=== PATIENT | female | born 1960 | race African-American/Black ===

== ENCOUNTER 2018-07-20 16:24 | Inpatient (IN) | payer MEDICAID ==
[~2018-07-20] VITALS: Ht 160 cm; Wt 129.3 kg
[~2018-07-20 16:24] MED LIST: ACET-2178 PO; ALBU18HF2 IH; AMLO10TA80 PO; ARIP30TA2 PO; ASPI-1159 PO; BENZ2TAB7 PO; CALCIUM PO; CARV25TA47 PO; FURO-152 PO; GABA-531 PO; IBUP-2030 PO; LIP40 PO; LISI40TA4 PO; OMEP20CA10 PO; PRAV20TA57 PO; VIT D PO
[2018-07-20] MEDS ORDERED: ASPIRIN 81MG TABLET PO ONE (16:45)
[2018-07-20 17:01] LABS: BASOPHILS % 0.8 % (0.0-2.0); HEMATOCRIT. 37.6 % (36.0-48.0); HEMOGLOBIN. 11.7 g/dL (12.0-16.0); LYMPHOCYTES % 17.4 % (20.0-50.0); MEAN CORPUSCULAR HEMOGLOBIN 22.1 pg (28.0-32.0); MEAN PLATELET VOLUME 9.4 fl (7.4-10.4); NEUTROPHILS % 70.8 % (40.0-76.0); PLATELET 252 x1000/uL (130-400); RED BLOOD CELL COUNT 5.29 mill/uL (4.2-5.4); RED CELL DISTRIBUTION WIDTH 17.1 % (11.6-14.6)
[2018-07-20] MEDS: NITROGLYCERIN 0.4MG TABLET SL SL PRN ×2 (17:19→17:20)
[2018-07-20] MEDS ORDERED: FUROSEMIDE 40MG/4ML VIAL IVP ONE (17:30)
[2018-07-20 17:45] LABS: CHLORIDE 109 mEq/L (98-107); INR 1.2; PROTHROMBIN TIME 12.2 sec (9.6-11.0)
[2018-07-20] MEDS ORDERED: LORAZEPAM 2MG/ML CPJ IV PRN (23:30)
[2018-07-20] MEDS ORDERED: IPRATROPIUM/ALBUTEROL 0.5-3(2.5)MG/3ML NEB INH PRN (23:30)
[2018-07-20] MEDS ORDERED: CLONIDINE 0.1MG TABLET PO PRN (23:30)
[2018-07-20] MEDS ORDERED: DIPHENHYDRAMINE 50MG/ML VIAL IV PRN (23:30)
[2018-07-20] MEDS ORDERED: ONDANSETRON HCL 4MG/2ML INJ IV PRN (23:30)
[2018-07-21] VITALS (8 sets, daily range): BP systolic 102–144; BP diastolic 59–91
[2018-07-21 08:14] LABS: BASOPHILS % 0.8 % (0.0-2.0); EOSINOPHILS % 5.2 % (0.0-5.0); HEMATOCRIT. 35.2 % (36.0-48.0); HEMOGLOBIN. 11.1 g/dL (12.0-16.0); LYMPHOCYTES % 27.8 % (20.0-50.0); MEAN CORPUSCULAR HEMOGLOBIN 22.1 pg (28.0-32.0); MEAN CORPUSCULAR VOLUME 70.1 fL (81.0-99.0); MEAN PLATELET VOLUME 9.8 fl (7.4-10.4); MONOCYTES % 9.6 % (2.0-8.0); NEUTROPHILS % 56.6 % (40.0-76.0); PLATELET 242 x1000/uL (130-400); RED BLOOD CELL COUNT 5.02 mill/uL (4.2-5.4); RED CELL DISTRIBUTION WIDTH 16.6 % (11.6-14.6)
[2018-07-21] MEDS ORDERED: FUROSEMIDE 40MG/4ML VIAL IV SCH (09:00)
[2018-07-21] MEDS ORDERED: ENOXAPARIN 40MG/0.4ML SYR SUBCUT SCH (09:00)
[2018-07-21 09:11] LABS: CHLORIDE 106 mEq/L (98-107)
[2018-07-21 09:23] LABS: PHOSPHORUS 3.7 mg/dL (2.5-4.9)
[2018-07-21 09:26] LABS: CREATINE KINASE 122 IU/L (26-192)
[2018-07-21 09:29] LABS: CREATINE KINASE MB FRACTION < 1.0 ng/mL (0.5-3.6)
[2018-07-21] MEDS: OMEPRAZOLE 20MG CAPSULE EXTENDED RELEASE PO SCH (10:11)
[2018-07-21] MEDS: FOLIC ACID 1MG TABLET PO SCH (10:12)
[2018-07-21] MEDS: AMLODIPINE 10MG TABLET PO SCH (10:12)
[2018-07-21] MEDS: ASPIRIN 81MG EC TABLET PO SCH (10:12)
[2018-07-21] MEDS: LISINOPRIL 40MG TABLET PO SCH (10:13)
[2018-07-21] MEDS ORDERED: FUROSEMIDE 40MG/4ML VIAL IVP SCH (11:15)
[2018-07-21] MEDS: CARVEDILOL 25MG TABLET PO SCH ×2 (14:21→19:58)
[2018-07-21] MEDS: POTASSIUM CHLORIDE 20MEQ TABLET SR PO SCH (14:48)
[2018-07-21] MEDS: AZITHROMYCIN 500 MG in DEXT 5% WATER 250 ML IV SCH (14:48)
[2018-07-21] MEDS: METHYLPREDNISOLONE SOD SUCC 125 MG/2 ML VIAL IV SCH ×2 (14:49→21:51)
[2018-07-21] MEDS: CEFTRIAXONE 1 G PREMIX 50 ML IV SCH (14:49)
[2018-07-21 15:19] LABS: CREATINE KINASE 138 IU/L (26-192)
[2018-07-21 15:20] LABS: CREATINE KINASE MB FRACTION < 1.0 ng/mL (0.5-3.6)
[2018-07-21] MEDS: HYDROCODONE/ACETAMINOPHEN 5/325MG TABLET PO PRN (16:27)
[2018-07-21] MEDS: ATORVASTATIN CALCIUM 40MG TABLET PO SCH (16:48)
[2018-07-21] MEDS: APIXABAN 5 MG TABLET PO SCH (16:48)
[2018-07-21] MEDS: FUROSEMIDE 40MG/4ML VIAL IV SCH (16:54)
[2018-07-22 00:25] VITALS: BP 97/66
[2018-07-22 04:00] VITALS: BP 112/61
[2018-07-22] MEDS: METHYLPREDNISOLONE SOD SUCC 125 MG/2 ML VIAL IV SCH ×2 (06:17→13:30)
[2018-07-22] MEDS: FUROSEMIDE 40MG/4ML VIAL IV SCH ×2 (06:17→17:35)
[2018-07-22 08:00] VITALS: BP 115/65
[2018-07-22] MEDS: LISINOPRIL 40MG TABLET PO SCH ×2 (08:57→09:00)
[2018-07-22] MEDS: CARVEDILOL 25MG TABLET PO SCH ×2 (08:58→17:36)
[2018-07-22] MEDS: ASPIRIN 81MG EC TABLET PO SCH (08:58)
[2018-07-22] MEDS: FOLIC ACID 1MG TABLET PO SCH (08:58)
[2018-07-22] MEDS: APIXABAN 5 MG TABLET PO SCH ×2 (08:58→17:36)
[2018-07-22] MEDS: AMLODIPINE 10MG TABLET PO SCH ×2 (08:58→09:00)
[2018-07-22] MEDS: POTASSIUM CHLORIDE 20MEQ TABLET SR PO SCH (08:59)
[2018-07-22] MEDS: OMEPRAZOLE 20MG CAPSULE EXTENDED RELEASE PO SCH (08:59)
[2018-07-22 12:00] VITALS: BP 138/51
[2018-07-22] MEDS: AZITHROMYCIN 500 MG in DEXT 5% WATER 250 ML IV SCH (12:43)
[2018-07-22] MEDS: CEFTRIAXONE 1 G PREMIX 50 ML IV SCH (12:43)
[2018-07-22 16:00] VITALS: BP 112/63
[2018-07-22] MEDS: ATORVASTATIN CALCIUM 40MG TABLET PO SCH (17:36)
[2018-07-22 20:00] VITALS: BP 106/55
[2018-07-23] VITALS: BP 113/60
[2018-07-23 04:00] VITALS: BP 118/68
[2018-07-23] MEDS: METHYLPREDNISOLONE SOD SUCC 125 MG/2 ML VIAL IV SCH ×4 (06:04→20:41)
[2018-07-23] MEDS: FUROSEMIDE 40MG/4ML VIAL IV SCH ×2 (06:23→17:21)
[2018-07-23 08:00] VITALS: BP 113/63
[2018-07-23] MEDS: LISINOPRIL 40MG TABLET PO SCH (08:48)
[2018-07-23] MEDS: FOLIC ACID 1MG TABLET PO SCH (08:48)
[2018-07-23] MEDS: FAMOTIDINE 20MG TABLET PO SCH (08:48)
[2018-07-23] MEDS: ASPIRIN 81MG EC TABLET PO SCH (08:48)
[2018-07-23] MEDS: POTASSIUM CHLORIDE 20MEQ TABLET SR PO SCH (08:48)
[2018-07-23] MEDS: APIXABAN 5 MG TABLET PO SCH ×2 (08:48→17:21)
[2018-07-23] MEDS: AMLODIPINE 10MG TABLET PO SCH (08:49)
[2018-07-23] MEDS: AZITHROMYCIN 500 MG in DEXT 5% WATER 250 ML IV SCH (11:41)
[2018-07-23 12:00] VITALS: BP 120/63
[2018-07-23 16:00] VITALS: BP 125/77
[2018-07-23] MEDS: CEFTRIAXONE 1 G PREMIX 50 ML IV SCH (16:01)
[2018-07-23] MEDS: ATORVASTATIN CALCIUM 40MG TABLET PO SCH (17:21)
[2018-07-23] MEDS: CARVEDILOL 25MG TABLET PO SCH (17:26)
[2018-07-23 20:04] VITALS: BP 140/77
[2018-07-23] MEDS: HYDROCODONE/ACETAMINOPHEN 5/325MG TABLET PO PRN (21:10)
[2018-07-24 00:13] VITALS: BP 132/81
[2018-07-24 04:04] VITALS: BP 124/74
[2018-07-24] MEDS: METHYLPREDNISOLONE SOD SUCC 125 MG/2 ML VIAL IV SCH (06:23)
[2018-07-24] MEDS: FUROSEMIDE 40MG/4ML VIAL IV SCH (06:23)
[2018-07-24 06:57] LABS: HEMATOCRIT. 36.4 % (36.0-48.0); HEMOGLOBIN. 11.2 g/dL (12.0-16.0); MEAN CORPUSCULAR HEMOGLOBIN 21.7 pg (28.0-32.0); MEAN CORPUSCULAR VOLUME 70.9 fL (81.0-99.0); MEAN PLATELET VOLUME 10.5 fl (7.4-10.4); PLATELET 287 x1000/uL (130-400); RED BLOOD CELL COUNT 5.13 mill/uL (4.2-5.4); RED CELL DISTRIBUTION WIDTH 16.6 % (11.6-14.6)
[2018-07-24 07:39] LABS: PHOSPHORUS 3.6 mg/dL (2.5-4.9)
[2018-07-24] MEDS: AMLODIPINE 10MG TABLET PO SCH (08:37)
[2018-07-24] MEDS: LISINOPRIL 40MG TABLET PO SCH (08:37)
[2018-07-24] MEDS: FOLIC ACID 1MG TABLET PO SCH (08:38)
[2018-07-24] MEDS: CARVEDILOL 25MG TABLET PO SCH (08:38)
[2018-07-24] MEDS: ASPIRIN 81MG EC TABLET PO SCH (08:39)
[2018-07-24] MEDS: APIXABAN 5 MG TABLET PO SCH (08:39)
[2018-07-24] MEDS: POTASSIUM CHLORIDE 20MEQ TABLET SR PO SCH (08:39)
[2018-07-24] MEDS: FAMOTIDINE 20MG TABLET PO SCH (08:39)
[2018-07-24 11:29] VITALS: BP 126/86
[2018-07-24 13:29] LABS: PLATELET ESTIMATE NORMAL
== END 2018-07-24 12:13 | disposition home or self-care (01) | DRG 133 ==
LOC: ER 16:24 → EDBEDREQ 19:01 → 7WST 20:03 → EDBEDREQ 20:06 → EDBEDREQTM 20:06 → ENRESERV 23:08 → 6WST 07-23 08:00
PROVIDERS: ADMIT Internal Medicine Nephrology; ATTEND Internal Medicine Nephrology
DX: J96.02 Acute respiratory failure with hypercapnia (principal); I50.41 Acute combined systolic (congestive) and diastolic (congestive) heart failure; E66.01 Morbid (severe) obesity due to excess calories; I42.9 Cardiomyopathy, unspecified; I48.2 Chronic atrial fibrillation; J44.0 Chronic obstructive pulmonary disease with (acute) lower respiratory infection; J44.1 Chronic obstructive pulmonary disease with (acute) exacerbation; Z68.43 Body mass index [BMI] 50.0-59.9, adult; I11.0 Hypertensive heart disease with heart failure; E78.5 Hyperlipidemia, unspecified; J20.9 Acute bronchitis, unspecified; I69.328 Other speech and language deficits following cerebral infarction; Z95.810 Presence of automatic (implantable) cardiac defibrillator; Z87.891 Personal history of nicotine dependence; Z68.34 Body mass index [BMI] 34.0-34.9, adult; Z79.899 Other long term (current) drug therapy
CPT/HCPCS: 36415; 71045; 80048; 82550; 82553; 82962; 83735; 83880; 84100; 84484; 93005; 93306; 94640; 96372; 96374; 96375; 99291; C1893; J0456; J0696; J1650; J1940; J2930; J7050; J7060; J7620

== ENCOUNTER 2019-07-04 16:16 | Inpatient (IN) | payer MEDICAID ==
[~2019-07-04] VITALS: Ht 160 cm; Wt 124.8 kg
[~2019-07-04 16:16] MED LIST changes: -ACET-2178 PO; -ASPI-1159 PO; +ASPI-1497 PO; -OMEP20CA10 PO; +OMEP20CA14 PO; +TOPUD PO
[2019-07-04] MEDS ORDERED: IPRATROPIUM BROMIDE (0.02%) 0.5MG/2.5ML NEB HHN STA (17:42)
[2019-07-04] MEDS ORDERED: METHYLPREDNISOLONE SOD SUCC 125 MG/2 ML VIAL IV STA (17:42)
[2019-07-04] MEDS ORDERED: ALBUTEROL (0.083%) 2.5MG/3ML NEB HHN STA (17:42)
[2019-07-04] MEDS ORDERED: ASPIRIN 81MG TABLET PO ONE (17:45)
[2019-07-04 18:52] LABS: BASOPHILS % 1.5 % (0.0-2.0); EOSINOPHILS % 1.8 % (0.0-5.0); HEMATOCRIT. 36.6 % (36.0-48.0); HEMOGLOBIN. 11.5 g/dL (12.0-16.0); LYMPHOCYTES % 19.7 % (20.0-50.0); MEAN CORPUSCULAR HEMOGLOBIN 21.2 pg (28.0-32.0); MEAN CORPUSCULAR VOLUME 67.3 fL (81.0-99.0); MEAN PLATELET VOLUME 10.1 fl (7.4-10.4); MONOCYTES % 9.7 % (2.0-8.0); NEUTROPHILS % 67.3 % (40.0-76.0); PLATELET 331 x1000/uL (130-400); RED BLOOD CELL COUNT 5.44 mill/uL (4.2-5.4)
[2019-07-04] MEDS ORDERED: NITROGLYCERIN OINT 1GM/INCH UDPKT TD ONE (19:00)
[2019-07-04] MEDS ORDERED: FUROSEMIDE 40MG/4ML VIAL IV ONE (19:00)
[2019-07-04 19:23] LABS: PLATELET ESTIMATE NORMAL
[2019-07-04] MEDS ORDERED: KETOROLAC 15MG/ML VIAL IV ONE (19:45)
[2019-07-04 19:56] LABS: CHLORIDE 109 mEq/L (98-107)
[2019-07-04] MEDS ORDERED: MAGNESIUM/ALUMINUM HYDROXIDE/SIMETHICONE 30ML UDC PO PRN (20:00)
[2019-07-04] MEDS ORDERED: LORAZEPAM 2MG/ML CPJ IV PRN (20:00)
[2019-07-04] MEDS ORDERED: ONDANSETRON HCL 4MG/2ML INJ IV PRN (20:00)
[2019-07-04] MEDS ORDERED: DIPHENHYDRAMINE 50MG/ML VIAL IV PRN (20:00)
[2019-07-04] MEDS ORDERED: HYDRALAZINE 20MG/ML VIAL IV PRN (20:00)
[2019-07-04] MEDS ORDERED: DOCUSATE SODIUM 100MG CAPSULE PO PRN (20:00)
[2019-07-04] MEDS ORDERED: GUAIFENESIN 200MG/10ML SUGAR FREE UDC PO PRN (20:00)
[2019-07-04] MEDS ORDERED: CLONIDINE 0.1MG TABLET PO PRN (20:00)
[2019-07-04] MEDS ORDERED: ACETAMINOPHEN 325MG TABLET PO PRN (20:00)
[2019-07-04 22:40] VITALS: BP 115/62
[2019-07-04] MEDS ORDERED: HYDROCODONE/ACETAMINOPHEN 10/325MG TABLET PO PRN (22:57)
[2019-07-04] MEDS ORDERED: MORPHINE SULFATE 2 MG/ML CPJ (NOT FOR IM USE) IV PRN (22:58)
[2019-07-04] MEDS ORDERED: GLIP5TAB12 PO (23:57)
[2019-07-04] MEDS ORDERED: FURO-151 PO (23:57)
[2019-07-05] VITALS: BP 130/66
[2019-07-05 00:21] LABS: CREATINE KINASE MB FRACTION 1.5 ng/mL (0.5-3.6)
[2019-07-05 04:00] VITALS: BP 104/61
[2019-07-05] MEDS: SODIUM CHLORIDE 0.9% INJ 3ML FLUSH IVF SCH ×3 (06:07→23:06)
[2019-07-05 07:48] LABS: HEMATOCRIT. 34.2 % (36.0-48.0); HEMOGLOBIN. 10.6 g/dL (12.0-16.0); MEAN CORPUSCULAR VOLUME 67.7 fL (81.0-99.0); MEAN PLATELET VOLUME 10.4 fl (7.4-10.4); PLATELET 266 x1000/uL (130-400); RED BLOOD CELL COUNT 5.06 mill/uL (4.2-5.4); RED CELL DISTRIBUTION WIDTH 16.6 % (11.6-14.6)
[2019-07-05 08:00] VITALS: BP 138/84
[2019-07-05 08:07] LABS: CHLORIDE 107 mEq/L (98-107)
[2019-07-05 08:24] LABS: CREATINE KINASE 277 IU/L (26-192)
[2019-07-05 08:26] LABS: CREATINE KINASE MB FRACTION 1.5 ng/mL (0.5-3.6)
[2019-07-05] MEDS: ENOXAPARIN 30MG/0.3ML SYR SUBCUT SCH ×2 (08:54→23:06)
[2019-07-05 09:12] LABS: T4 FREE 1.26 ng/dL (0.76-1.46)
[2019-07-05] MEDS ORDERED: DEXTROSE 50% WATER 50ML SYRINGE IV PRN (11:00)
[2019-07-05] MEDS: BLOOD SUGAR DIAGNOSTIC STRIP TEST SCH ×3 (11:45→21:00)
[2019-07-05 12:00] VITALS: BP 104/68
[2019-07-05] MEDS: INSULIN LISPRO 100 UNITS/ML SUBCUT SCH ×3 (12:54→21:00)
[2019-07-05 14:14] LABS: PLATELET ESTIMATE NORMAL
[2019-07-05 16:00] VITALS: BP 113/64
[2019-07-05 17:54] LABS: CREATINE KINASE 294 IU/L (26-192)
[2019-07-05 17:56] LABS: CREATINE KINASE MB FRACTION 2.3 ng/mL (0.5-3.6)
[2019-07-05 20:00] VITALS: BP 126/77
[2019-07-06] VITALS: BP 114/59
[2019-07-06 01:00] LABS: CREATINE KINASE 272 IU/L (26-192)
[2019-07-06 01:01] LABS: CREATINE KINASE MB FRACTION 2.3 ng/mL (0.5-3.6)
[2019-07-06] MEDS: IPRATROPIUM/ALBUTEROL 0.5-3(2.5)MG/3ML NEB HHN PRN (03:09)
[2019-07-06 04:00] VITALS: BP 123/74
[2019-07-06] MEDS: SODIUM CHLORIDE 0.9% INJ 3ML FLUSH IVF SCH ×3 (06:31→21:36)
[2019-07-06] MEDS: BLOOD SUGAR DIAGNOSTIC STRIP TEST SCH ×4 (06:59→21:00)
[2019-07-06] MEDS: INSULIN LISPRO 100 UNITS/ML SUBCUT SCH ×4 (07:15→21:00)
[2019-07-06 07:32] LABS: BASOPHILS % 0.5 % (0.0-2.0); EOSINOPHILS % 0.1 % (0.0-5.0); HEMATOCRIT. 34.2 % (36.0-48.0); HEMOGLOBIN. 10.6 g/dL (12.0-16.0); MEAN CORPUSCULAR VOLUME 67.5 fL (81.0-99.0); MEAN PLATELET VOLUME 10.6 fl (7.4-10.4); MONOCYTES % 6.5 % (2.0-8.0); NEUTROPHILS % 81.9 % (40.0-76.0); PLATELET 314 x1000/uL (130-400); RED BLOOD CELL COUNT 5.08 mill/uL (4.2-5.4); RED CELL DISTRIBUTION WIDTH 16.5 % (11.6-14.6)
[2019-07-06 07:34] LABS: CHLORIDE 107 mEq/L (98-107)
[2019-07-06 07:51] LABS: CREATINE KINASE 266 IU/L (26-192)
[2019-07-06 07:56] LABS: CREATINE KINASE MB FRACTION 2.2 ng/mL (0.5-3.6)
[2019-07-06 08:00] VITALS: BP 115/89
[2019-07-06] MEDS: ENOXAPARIN 30MG/0.3ML SYR SUBCUT SCH ×2 (09:04→21:36)
[2019-07-06 12:00] VITALS: BP 120/81
[2019-07-06] MEDS: FUROSEMIDE 40MG/4ML VIAL IVP SCH ×2 (14:03→17:55)
[2019-07-06 16:00] VITALS: BP_SYST 125; BP_SYST 163; BP_DIAS 115; BP_DIAS 79
[2019-07-06 20:00] VITALS: BP 127/79
[2019-07-07] VITALS: BP 123/89
[2019-07-07] MEDS: IPRATROPIUM/ALBUTEROL 0.5-3(2.5)MG/3ML NEB HHN PRN (02:04)
[2019-07-07 04:00] VITALS: BP 159/96
[2019-07-07] MEDS: SODIUM CHLORIDE 0.9% INJ 3ML FLUSH IVF SCH ×2 (06:30→14:00)
[2019-07-07] MEDS: INSULIN LISPRO 100 UNITS/ML SUBCUT SCH ×4 (07:15→21:00)
[2019-07-07] MEDS: BLOOD SUGAR DIAGNOSTIC STRIP TEST SCH ×4 (07:22→21:00)
[2019-07-07 08:00] VITALS: BP 117/81
[2019-07-07] MEDS: FUROSEMIDE 40MG/4ML VIAL IVP SCH ×2 (09:08→17:24)
[2019-07-07] MEDS: ENOXAPARIN 30MG/0.3ML SYR SUBCUT SCH ×2 (09:08→21:50)
[2019-07-07] MEDS: LOSARTAN POTASSIUM 25 MG TABLET PO SCH (09:09)
[2019-07-07 12:00] VITALS: BP 116/82
[2019-07-07 16:00] VITALS: BP 106/70
[2019-07-07 20:00] VITALS: BP 121/79
[2019-07-08] VITALS: BP 132/87
[2019-07-08] MEDS: SODIUM CHLORIDE 0.9% INJ 3ML FLUSH IVF SCH ×3 (00:34→14:00)
[2019-07-08 04:00] VITALS: BP 121/79
[2019-07-08] MEDS: BLOOD SUGAR DIAGNOSTIC STRIP TEST SCH ×3 (06:45→16:45)
[2019-07-08 06:54] LABS: BASOPHILS % 1.2 % (0.0-2.0); EOSINOPHILS % 1.3 % (0.0-5.0); HEMATOCRIT. 37.9 % (36.0-48.0); HEMOGLOBIN. 11.7 g/dL (12.0-16.0); LYMPHOCYTES % 23.3 % (20.0-50.0); MEAN CORPUSCULAR HEMOGLOBIN 20.6 pg (28.0-32.0); MEAN CORPUSCULAR VOLUME 66.8 fL (81.0-99.0); MEAN PLATELET VOLUME 10.4 fl (7.4-10.4); MONOCYTES % 12.1 % (2.0-8.0); NEUTROPHILS % 62.1 % (40.0-76.0); PLATELET 342 x1000/uL (130-400); RED BLOOD CELL COUNT 5.67 mill/uL (4.2-5.4)
[2019-07-08] MEDS: FUROSEMIDE 40MG/4ML VIAL IVP SCH ×2 (07:04→16:46)
[2019-07-08] MEDS: INSULIN LISPRO 100 UNITS/ML SUBCUT SCH ×3 (07:15→16:46)
[2019-07-08 08:00] VITALS: BP 118/86
[2019-07-08] MEDS: LOSARTAN POTASSIUM 25 MG TABLET PO SCH (08:46)
[2019-07-08] MEDS: ENOXAPARIN 30MG/0.3ML SYR SUBCUT SCH (08:47)
[2019-07-08 12:00] VITALS: BP 109/73
[2019-07-08 15:28] VITALS: BP 109/70
== END 2019-07-08 17:50 | disposition home or self-care (01) | DRG 133 ==
LOC: ER 16:16 → 5WST 19:47 → ENRESERV 20:12
PROVIDERS: ADMIT Internal Medicine; ATTEND Internal Medicine
DX: J96.00 Acute respiratory failure, unspecified whether with hypoxia or hypercapnia (principal); I50.23 Acute on chronic systolic (congestive) heart failure; E87.8 Other disorders of electrolyte and fluid balance, not elsewhere classified; I42.9 Cardiomyopathy, unspecified; E44.1 Mild protein-calorie malnutrition; I48.91 Unspecified atrial fibrillation; I11.0 Hypertensive heart disease with heart failure; E11.9 Type 2 diabetes mellitus without complications; D64.9 Anemia, unspecified; J44.1 Chronic obstructive pulmonary disease with (acute) exacerbation; E66.9 Obesity, unspecified; E78.5 Hyperlipidemia, unspecified; Z86.73 Personal history of transient ischemic attack (TIA), and cerebral infarction without residual deficits; Z87.891 Personal history of nicotine dependence; Z95.810 Presence of automatic (implantable) cardiac defibrillator; Z79.1 Long term (current) use of non-steroidal anti-inflammatories (NSAID); Z79.82 Long term (current) use of aspirin; Z79.84 Long term (current) use of oral hypoglycemic drugs; Z79.899 Other long term (current) drug therapy; Z68.42 Body mass index [BMI] 45.0-49.9, adult; Z71.3 Dietary counseling and surveillance
CPT/HCPCS: 36415; 71045; 76700; 80048; 80053; 80061; 82550; 82553; 82962; 83036; 83880; 84439; 84443; 84484; 85025; 85379; 93005; 93306; 93970; 94640; 94644; 99285; J1650; J1815; J1885; J1940; J2270; J2930

== ENCOUNTER 2019-08-17 14:50 | Inpatient (IN) | payer MEDICAID ==
[~2019-08-17] VITALS: Ht 175.3 cm; Wt 140.6 kg
[~2019-08-17 14:50] MED LIST changes: +FURO-151 PO; +GLIP5TAB12 PO
[2019-08-17] MEDS ORDERED: ONDANSETRON HCL 4MG/2ML INJ IV STA (15:26)
[2019-08-17] MEDS ORDERED: MORPHINE SULFATE 4 MG/ML CPJ (NOT FOR IM USE) IV STA (15:26)
[2019-08-17] MEDS ORDERED: ACETAMINOPHEN 325MG TABLET PO STA (15:26)
[2019-08-17] MEDS ORDERED: MAGNESIUM 2 G PREMIX 50 ML IV ONE (15:45)
[2019-08-17] MEDS ORDERED: FUROSEMIDE 40MG/4ML VIAL IV ONE (15:45)
[2019-08-17] MEDS ORDERED: ALBUTEROL 6.7GM HFA INHALER ORI ONE (15:45)
[2019-08-17] MEDS ORDERED: NITROGLYCERIN OINT 1GM/INCH UDPKT TD ONE (15:45)
[2019-08-17] MEDS ORDERED: AZITHROMYCIN 500 MG in DEXT 5% WATER 250 ML IV ONE (17:00)
[2019-08-17] MEDS ORDERED: CEFTRIAXONE 2 G PREMIX 50 ML IV ONE (17:00)
[2019-08-17 17:16] LABS: CHLORIDE 107 mEq/L (98-107)
[2019-08-17 17:17] LABS: BASOPHILS % 0.9 % (0.0-2.0); EOSINOPHILS % 0.1 % (0.0-5.0); HEMATOCRIT. 38.3 % (36.0-48.0); LYMPHOCYTES % 19.4 % (20.0-50.0); MEAN CORPUSCULAR HEMOGLOBIN 20.4 pg (28.0-32.0); MEAN PLATELET VOLUME 10.1 fl (7.4-10.4); MONOCYTES % 11.5 % (2.0-8.0); NEUTROPHILS % 68.1 % (40.0-76.0); PLATELET 305 x1000/uL (130-400); RED BLOOD CELL COUNT 5.89 mill/uL (4.2-5.4)
[2019-08-17 17:19] LABS: CLARITY URINE CLEAR (CLEAR); COLOR URINE DARK YELLOW (YELLOW); KETONES URINE TRACE (NEGATIVE); LEUKOCYTE ESTERASE URINE TRACE (NEGATIVE); NITRITE URINE NEGATIVE (NEGATIVE); OCCULT BLOOD URINE NEGATIVE (NEGATIVE); PROTEIN URINE TRACE (NEGATIVE); SPECIFIC GRAVITY URINE 1.018 (1.005-1.030)
[2019-08-17 17:27] LABS: D-DIMER 4.46 mg/L FEU (<0.50); INR 1.1; PROTHROMBIN TIME 12.4 sec (9.6-11.0)
[2019-08-17 17:54] LABS: PLATELET ESTIMATE NORMAL
[2019-08-17 21:00] VITALS: BP 129/79
[2019-08-17] MEDS ORDERED: IPRATROPIUM/ALBUTEROL 0.5-3(2.5)MG/3ML NEB NEB PRN (23:15)
[2019-08-17] MEDS ORDERED: CLONIDINE 0.1MG TABLET PO PRN (23:15)
[2019-08-17] MEDS ORDERED: DOCUSATE SODIUM 100MG CAPSULE PO PRN (23:15)
[2019-08-17] MEDS ORDERED: ONDANSETRON HCL 4MG/2ML INJ IV PRN (23:15)
[2019-08-17] MEDS ORDERED: ACETAMINOPHEN 325MG TABLET PO PRN (23:15)
[2019-08-17] MEDS ORDERED: CEFTRIAXONE 1 G PREMIX 50 ML IV SCH (23:15)
[2019-08-17] MEDS ORDERED: ALBUTEROL 6.7GM HFA INHALER INH PRN (23:33)
[2019-08-18] VITALS (7 sets, daily range): BP systolic 109–133; BP diastolic 70–81
[2019-08-18] MEDS: FUROSEMIDE 40MG/4ML VIAL IV SCH ×2 (08:58→17:20)
[2019-08-18] MEDS: ENOXAPARIN 30MG/0.3ML SYR SUBCUT SCH ×2 (08:58→20:42)
[2019-08-18 09:33] LABS: CHLORIDE 110 mEq/L (98-107)
[2019-08-18 09:40] LABS: LDL CHOLESTEROL 51 mg/dL (5-100)
[2019-08-18 09:41] LABS: CREATINE KINASE 70 IU/L (26-192); HDL CHOLESTEROL 17 mg/dL (40-59)
[2019-08-18 09:52] LABS: *AMPHETAMINES SCREEN URINE NEGATIVE (NEGATIVE); *BARBITURATES SCREEN URINE NEGATIVE (NEGATIVE); *BENZODIAZEPINES SCREEN URINE NEGATIVE (NEGATIVE); *COCAINE SCREEN URINE NEGATIVE (NEGATIVE); METHADONE URINE SCREEN NEGATIVE (NEGATIVE); OPIATES URINE SCREEN NEGATIVE (NEGATIVE); PHENCYCLIDINE URINE SCREEN NEGATIVE (NEGATIVE)
[2019-08-18 09:54] LABS: CANNABINOID URINE SCREEN NEGATIVE (NEGATIVE)
[2019-08-18] MEDS ORDERED: LIDOCAINE HCL/PF 1% 2ML VIAL ONE (10:55)
[2019-08-18 11:03] LABS: BASOPHILS % 0.4 % (0.0-2.0); EOSINOPHILS % 0.7 % (0.0-5.0); HEMATOCRIT. 33.7 % (36.0-48.0); HEMOGLOBIN. 10.7 g/dL (12.0-16.0); MEAN CORPUSCULAR HEMOGLOBIN 20.6 pg (28.0-32.0); MEAN CORPUSCULAR VOLUME 64.8 fL (81.0-99.0); MEAN PLATELET VOLUME 9.4 fl (7.4-10.4); MONOCYTES % 9.8 % (2.0-8.0); NEUTROPHILS % 73.1 % (40.0-76.0); PLATELET 275 x1000/uL (130-400); RED CELL DISTRIBUTION WIDTH 21.7 % (11.6-14.6)
[2019-08-18] MEDS: OMEPRAZOLE 20MG CAPSULE EXTENDED RELEASE PO SCH (13:32)
[2019-08-18] MEDS: GLIPIZIDE 5MG TABLET PO SCH (13:33)
[2019-08-18] MEDS: ASPIRIN 81MG EC TABLET PO SCH (13:33)
[2019-08-18] MEDS: AMLODIPINE 10MG TABLET PO SCH (13:40)
[2019-08-18] MEDS: LISINOPRIL 40MG TABLET PO SCH (13:41)
[2019-08-18] MEDS ORDERED: ALBUTEROL 6.7GM HFA INHALER ORI PRN (15:30)
[2019-08-18 16:25] LABS: BG BASE EXCESS 4.6 mmol/L (-2.0-2.0); BG CARBOXYHEMOGLOBIN 0.9 % (0.5-1.5); BG DEOXYHEMOGLOBIN 2.1 % (0.0-5.0); BG FRACTION INSPIRED OXYGEN 28; BG HCO3 ACT 27.7 mmol/L (22.0-26.0); BG METHEMOGLOBIN 0.1 % (0.0-1.5); BG OXYGEN SATURATION 97.9 % (92.0-98.5); BG OXYHEMOGLOBIN 96.9 % (94.0-97.0); BG PCO2 35.8 mmHg (35.0-45.0); BG PH 7.507 (7.350-7.450); BG PO2 97.6 mmHg (75.0-100.0); BG SAMPLE SITE RIGHT BRACHIAL; BG TOTAL HEMOGLOBIN 11.1 g/dL (12.0-18.0); BG VENT MODE NASAL CANNULA
[2019-08-18] MEDS: AZITHROMYCIN 250 MG in DEXT 5% WATER 250 ML IV SCH (17:20)
[2019-08-18] MEDS: BENZTROPINE MESYLATE 2MG TABLET PO SCH (17:20)
[2019-08-18 17:35] LABS: CREATINE KINASE 90 IU/L (26-192)
[2019-08-18 17:36] LABS: CREATINE KINASE MB FRACTION < 1.0 ng/mL (0.5-3.6)
[2019-08-18] MEDS: AMIODARONE HCL 200 MG TABLET PO SCH (19:28)
[2019-08-18] MEDS: CEFTRIAXONE 1 G PREMIX 50 ML IV SCH (20:41)
[2019-08-18] MEDS: ARIPIPRAZOLE 5MG TABLET PO SCH (20:43)
[2019-08-18] MEDS: ATORVASTATIN CALCIUM 40MG TABLET PO SCH (20:43)
[2019-08-18] MEDS: GABAPENTIN 300MG CAPSULE PO SCH (20:46)
[2019-08-18] MEDS: CARVEDILOL 12.5MG TABLET PO SCH (20:46)
[2019-08-18] MEDS: MORPHINE SULFATE 2 MG/ML CPJ (NOT FOR IM USE) IV PRN (20:50)
[2019-08-19] VITALS: BP 118/62
[2019-08-19 04:00] VITALS: BP 116/67
[2019-08-19] MEDS: GLIPIZIDE 5MG TABLET PO SCH (06:41)
[2019-08-19] MEDS: OMEPRAZOLE 20MG CAPSULE EXTENDED RELEASE PO SCH (06:42)
[2019-08-19 06:48] LABS: HEMATOCRIT. 32.5 % (36.0-48.0); HEMOGLOBIN. 10.4 g/dL (12.0-16.0); MEAN CORPUSCULAR HEMOGLOBIN 20.7 pg (28.0-32.0); PLATELET 256 x1000/uL (130-400)
[2019-08-19 07:21] LABS: CHLORIDE 102 mEq/L (98-107)
[2019-08-19 07:26] LABS: TOTAL IRON BINDING CAPACITY 259 ug/dL (250-450)
[2019-08-19 08:00] VITALS: BP 117/74
[2019-08-19] MEDS: FUROSEMIDE 40MG/4ML VIAL IV SCH (08:16)
[2019-08-19] MEDS: AMLODIPINE 10MG TABLET PO SCH (08:16)
[2019-08-19] MEDS: ENOXAPARIN 30MG/0.3ML SYR SUBCUT SCH ×2 (08:16→21:56)
[2019-08-19] MEDS: MORPHINE SULFATE 2 MG/ML CPJ (NOT FOR IM USE) IV PRN ×2 (08:16→17:47)
[2019-08-19] MEDS: LISINOPRIL 40MG TABLET PO SCH (08:16)
[2019-08-19] MEDS: AMIODARONE HCL 200 MG TABLET PO SCH ×2 (08:35→17:23)
[2019-08-19] MEDS: ASPIRIN 81MG EC TABLET PO SCH (08:50)
[2019-08-19] MEDS: CARVEDILOL 12.5MG TABLET PO SCH ×2 (08:50→21:54)
[2019-08-19] MEDS: HYDROCODONE/ACETAMINOPHEN 5/325MG TABLET PO PRN (11:06)
[2019-08-19 12:00] VITALS: BP 112/69
[2019-08-19] MEDS ORDERED: IPRATROPIUM/ALBUTEROL 0.5-3(2.5)MG/3ML NEB HHN PRN (12:45)
[2019-08-19 14:28] LABS: PLATELET ESTIMATE NORMAL
[2019-08-19 16:00] VITALS: BP 119/65
[2019-08-19] MEDS: METHYLPREDNISOLONE SOD SUCC 40 MG/ML VIAL IV SCH (17:23)
[2019-08-19] MEDS: BENZONATATE 100MG CAPSULE PO SCH ×2 (17:23→21:59)
[2019-08-19] MEDS: BENZTROPINE MESYLATE 2MG TABLET PO SCH (17:23)
[2019-08-19] MEDS: AZITHROMYCIN 250 MG in DEXT 5% WATER 250 ML IV SCH (17:23)
[2019-08-19] MEDS: IRON SUCROSE COMPLEX 100 MG/5 ML ML IV SCH (17:47)
[2019-08-19 20:00] VITALS: BP 102/73
[2019-08-19] MEDS: ARIPIPRAZOLE 5MG TABLET PO SCH (21:00)
[2019-08-19] MEDS: IPRATROPIUM/ALBUTEROL 0.5-3(2.5)MG/3ML NEB HHN SCH (21:25)
[2019-08-19] MEDS: CEFTRIAXONE 1 G PREMIX 50 ML IV SCH (21:53)
[2019-08-19] MEDS: ATORVASTATIN CALCIUM 40MG TABLET PO SCH (21:54)
[2019-08-19] MEDS: GABAPENTIN 300MG CAPSULE PO SCH (21:54)
[2019-08-20] VITALS: BP 109/73
[2019-08-20] MEDS: IPRATROPIUM/ALBUTEROL 0.5-3(2.5)MG/3ML NEB HHN SCH ×4 (01:07→20:37)
[2019-08-20 04:00] VITALS: BP 122/70
[2019-08-20] MEDS: GLIPIZIDE 5MG TABLET PO SCH (06:23)
[2019-08-20] MEDS: BENZONATATE 100MG CAPSULE PO SCH ×3 (06:23→20:41)
[2019-08-20 07:03] LABS: HEMATOCRIT. 32.6 % (36.0-48.0); HEMOGLOBIN. 10.2 g/dL (12.0-16.0); MEAN CORPUSCULAR HEMOGLOBIN 20.4 pg (28.0-32.0); MEAN CORPUSCULAR VOLUME 65.1 fL (81.0-99.0); RED CELL DISTRIBUTION WIDTH 22.2 % (11.6-14.6)
[2019-08-20 08:00] VITALS: BP 119/66
[2019-08-20] MEDS: AMLODIPINE 10MG TABLET PO SCH (09:00)
[2019-08-20] MEDS: CARVEDILOL 12.5MG TABLET PO SCH ×2 (09:00→20:44)
[2019-08-20] MEDS: LISINOPRIL 40MG TABLET PO SCH (09:00)
[2019-08-20] MEDS: ASPIRIN 81MG EC TABLET PO SCH (09:29)
[2019-08-20] MEDS: AMIODARONE HCL 200 MG TABLET PO SCH ×2 (09:29→17:34)
[2019-08-20] MEDS: FAMOTIDINE 20MG TABLET PO SCH ×2 (09:29→17:33)
[2019-08-20] MEDS: ENOXAPARIN 30MG/0.3ML SYR SUBCUT SCH ×2 (09:29→20:41)
[2019-08-20] MEDS: MORPHINE SULFATE 2 MG/ML CPJ (NOT FOR IM USE) IV PRN ×2 (09:30→14:14)
[2019-08-20] MEDS: IRON SUCROSE COMPLEX 100 MG/5 ML ML IV SCH (09:30)
[2019-08-20] MEDS: METHYLPREDNISOLONE SOD SUCC 40 MG/ML VIAL IV SCH ×2 (09:30→17:33)
[2019-08-20] MEDS: FUROSEMIDE 40MG/4ML VIAL IV SCH (09:31)
[2019-08-20 12:00] VITALS: BP 98/65
[2019-08-20 12:18] LABS: PLATELET 228 x1000/uL (130-400)
[2019-08-20 12:21] LABS: PLATELET ESTIMATE NORMAL
[2019-08-20 16:00] VITALS: BP 101/55
[2019-08-20] MEDS: BENZTROPINE MESYLATE 2MG TABLET PO SCH (16:48)
[2019-08-20] MEDS: AZITHROMYCIN 250 MG in DEXT 5% WATER 250 ML IV SCH (16:48)
[2019-08-20 20:00] VITALS: BP 108/62
[2019-08-20] MEDS: HYDROCODONE/ACETAMINOPHEN 5/325MG TABLET PO PRN (20:40)
[2019-08-20] MEDS: ATORVASTATIN CALCIUM 40MG TABLET PO SCH (20:40)
[2019-08-20] MEDS: GABAPENTIN 300MG CAPSULE PO SCH (20:41)
[2019-08-20] MEDS: GUAIFENESIN 200MG/10ML SUGAR FREE UDC PO PRN (20:43)
[2019-08-20] MEDS: ARIPIPRAZOLE 5MG TABLET PO SCH (20:44)
[2019-08-20] MEDS: CEFTRIAXONE 1 G PREMIX 50 ML IV SCH (20:44)
[2019-08-21] VITALS: BP 110/65
[2019-08-21] MEDS: IPRATROPIUM/ALBUTEROL 0.5-3(2.5)MG/3ML NEB HHN SCH ×4 (02:38→20:15)
[2019-08-21 04:00] VITALS: BP 127/78
[2019-08-21] MEDS: GLIPIZIDE 5MG TABLET PO SCH (05:55)
[2019-08-21] MEDS: BENZONATATE 100MG CAPSULE PO SCH ×3 (05:55→20:06)
[2019-08-21] MEDS: HYDROCODONE/ACETAMINOPHEN 5/325MG TABLET PO PRN ×2 (05:56→16:18)
[2019-08-21 06:52] LABS: HEMOGLOBIN. 10.3 g/dL (12.0-16.0); MEAN CORPUSCULAR HEMOGLOBIN 20.3 pg (28.0-32.0); MEAN CORPUSCULAR VOLUME 65.1 fL (81.0-99.0); MEAN PLATELET VOLUME 10.4 fl (7.4-10.4); PLATELET 260 x1000/uL (130-400); RED BLOOD CELL COUNT 5.06 mill/uL (4.2-5.4); RED CELL DISTRIBUTION WIDTH 21.8 % (11.6-14.6)
[2019-08-21 08:00] VITALS: BP 120/82
[2019-08-21] MEDS: AMLODIPINE 10MG TABLET PO SCH ×2 (09:00→10:22)
[2019-08-21] MEDS: LISINOPRIL 40MG TABLET PO SCH ×2 (09:00→10:23)
[2019-08-21] MEDS: CARVEDILOL 12.5MG TABLET PO SCH ×2 (09:00→20:06)
[2019-08-21] MEDS ORDERED: LIDOCAINE HCL 1% 20ML VIAL (Pyxis) INJ ONE (09:01)
[2019-08-21] MEDS ORDERED: IOHEXOL-350 100 ML BOTTLE ONE (09:18)
[2019-08-21] MEDS: ENOXAPARIN 30MG/0.3ML SYR SUBCUT SCH (10:22)
[2019-08-21] MEDS: METHYLPREDNISOLONE SOD SUCC 40 MG/ML VIAL IV SCH ×2 (10:22→16:17)
[2019-08-21] MEDS: FUROSEMIDE 40MG/4ML VIAL IV SCH (10:23)
[2019-08-21] MEDS: ASPIRIN 81MG EC TABLET PO SCH (10:23)
[2019-08-21] MEDS: FAMOTIDINE 20MG TABLET PO SCH ×2 (10:23→16:19)
[2019-08-21] MEDS: AMIODARONE HCL 200 MG TABLET PO SCH ×2 (10:24→16:18)
[2019-08-21] MEDS: GUAIFENESIN 200MG/10ML SUGAR FREE UDC PO PRN ×2 (10:24→16:19)
[2019-08-21 14:39] LABS: NUCLEATED RED BLOOD CELLS 1 /100 WBC; PLATELET ESTIMATE NORMAL
[2019-08-21 16:00] VITALS: BP 122/81
[2019-08-21] MEDS: BENZTROPINE MESYLATE 2MG TABLET PO SCH (16:19)
[2019-08-21] MEDS: APIXABAN 5 MG TABLET PO SCH (17:57)
[2019-08-21] MEDS ORDERED: AZITHROMYCIN 250 MG TABLET PO SCH (18:00)
[2019-08-21] MEDS: MORPHINE SULFATE 2 MG/ML CPJ (NOT FOR IM USE) IV PRN (19:40)
[2019-08-21] MEDS: CEFTRIAXONE 1 G PREMIX 50 ML IV SCH (19:56)
[2019-08-21] MEDS: ARIPIPRAZOLE 5MG TABLET PO SCH (19:57)
[2019-08-21] MEDS: ATORVASTATIN CALCIUM 40MG TABLET PO SCH (19:57)
[2019-08-21] MEDS: GABAPENTIN 300MG CAPSULE PO SCH (19:58)
[2019-08-21 20:00] VITALS: BP 128/88
[2019-08-22] VITALS: BP 124/82
[2019-08-22] MEDS: IPRATROPIUM/ALBUTEROL 0.5-3(2.5)MG/3ML NEB HHN SCH ×4 (01:17→21:36)
[2019-08-22 04:00] VITALS: BP 128/76
[2019-08-22] MEDS: BENZONATATE 100MG CAPSULE PO SCH ×3 (05:17→22:07)
[2019-08-22] MEDS: GLIPIZIDE 5MG TABLET PO SCH (05:22)
[2019-08-22 08:00] VITALS: BP 125/72
[2019-08-22] MEDS: CARVEDILOL 12.5MG TABLET PO SCH ×3 (08:50→22:36)
[2019-08-22] MEDS: AMLODIPINE 10MG TABLET PO SCH (08:51)
[2019-08-22] MEDS: LISINOPRIL 40MG TABLET PO SCH (08:52)
[2019-08-22] MEDS: AMIODARONE HCL 200 MG TABLET PO SCH ×2 (09:00→16:26)
[2019-08-22] MEDS: FAMOTIDINE 20MG TABLET PO SCH ×2 (09:00→16:26)
[2019-08-22] MEDS: APIXABAN 5 MG TABLET PO SCH (09:00)
[2019-08-22] MEDS ORDERED: PREDNISONE 20MG TABLET PO SCH (09:00)
[2019-08-22 09:52] LABS: HEMATOCRIT. 31.3 % (36.0-48.0); HEMOGLOBIN. 9.7 g/dL (12.0-16.0); MEAN CORPUSCULAR HEMOGLOBIN 20.3 pg (28.0-32.0); MEAN CORPUSCULAR VOLUME 65.2 fL (81.0-99.0); MEAN PLATELET VOLUME 10.4 fl (7.4-10.4); PLATELET 262 x1000/uL (130-400); RED CELL DISTRIBUTION WIDTH 21.7 % (11.6-14.6)
[2019-08-22] MEDS: FUROSEMIDE 40MG/4ML VIAL IV SCH (10:16)
[2019-08-22 11:54] VITALS: BP 127/73
[2019-08-22 12:32] LABS: PLATELET ESTIMATE NORMAL
[2019-08-22] MEDS: METRONIDAZOLE 500 MG PREMIX 100 ML IV SCH ×2 (16:22→22:07)
[2019-08-22] MEDS: BENZTROPINE MESYLATE 2MG TABLET PO SCH (16:26)
[2019-08-22 16:30] VITALS: BP 136/78
[2019-08-22] MEDS: METHYLPREDNISOLONE SOD SUCC 40 MG/ML VIAL IV SCH (16:31)
[2019-08-22] MEDS: SODIUM CHLORIDE 0.9% 1,000 ML IV SCH (18:13)
[2019-08-22] MEDS ORDERED: DEXTROSE 50% WATER 50ML SYRINGE IV PRN (18:15)
[2019-08-22] MEDS: ENOXAPARIN 120MG/0.8ML SYR SUBCUT SCH (18:18)
[2019-08-22 20:00] VITALS: BP 128/60
[2019-08-22] MEDS: BLOOD SUGAR DIAGNOSTIC STRIP TEST SCH (21:00)
[2019-08-22] MEDS: ARIPIPRAZOLE 5MG TABLET PO SCH (21:00)
[2019-08-22] MEDS: CEFTRIAXONE 1 G PREMIX 50 ML IV SCH (22:06)
[2019-08-22] MEDS: ATORVASTATIN CALCIUM 40MG TABLET PO SCH (22:07)
[2019-08-22] MEDS: GABAPENTIN 300MG CAPSULE PO SCH ×2 (22:07→22:37)
[2019-08-22] MEDS: INSULIN LISPRO 100 UNITS/ML SUBCUT SCH (22:11)
[2019-08-22] MEDS ORDERED: MAGNESIUM 2 G PREMIX 50 ML IV NR (23:00)
[2019-08-23] VITALS: BP 103/61
[2019-08-23] MEDS: IPRATROPIUM/ALBUTEROL 0.5-3(2.5)MG/3ML NEB HHN SCH ×3 (01:21→13:16)
[2019-08-23 04:00] VITALS: BP 128/82
[2019-08-23] MEDS: SODIUM CHLORIDE 0.9% 1,000 ML IV SCH (05:33)
[2019-08-23] MEDS: METRONIDAZOLE 500 MG PREMIX 100 ML IV SCH ×3 (05:33→22:08)
[2019-08-23] MEDS: BENZONATATE 100MG CAPSULE PO SCH ×3 (05:33→21:08)
[2019-08-23] MEDS: ENOXAPARIN 120MG/0.8ML SYR SUBCUT SCH ×2 (05:34→18:34)
[2019-08-23] MEDS: GLIPIZIDE 5MG TABLET PO SCH (07:20)
[2019-08-23] MEDS: BLOOD SUGAR DIAGNOSTIC STRIP TEST SCH ×4 (07:20→21:09)
[2019-08-23] MEDS: INSULIN LISPRO 100 UNITS/ML SUBCUT SCH ×4 (07:50→21:09)
[2019-08-23 08:00] VITALS: BP 108/76
[2019-08-23] MEDS: LISINOPRIL 40MG TABLET PO SCH (09:00)
[2019-08-23] MEDS: AMLODIPINE 10MG TABLET PO SCH (09:00)
[2019-08-23] MEDS: FAMOTIDINE 20MG TABLET PO SCH ×2 (09:58→18:33)
[2019-08-23] MEDS: FUROSEMIDE 40MG/4ML VIAL IV SCH (09:58)
[2019-08-23] MEDS: METHYLPREDNISOLONE SOD SUCC 40 MG/ML VIAL IV SCH (09:58)
[2019-08-23] MEDS: AMIODARONE HCL 200 MG TABLET PO SCH ×2 (09:58→18:33)
[2019-08-23] MEDS ORDERED: DIATR MEGLU/DIATRIZOATE SOLN 30ML PO SCH (10:00)
[2019-08-23 12:00] VITALS: BP 115/72
[2019-08-23 15:53] LABS: BASOPHILS % 0.5 % (0.0-2.0); HEMATOCRIT. 31.3 % (36.0-48.0); HEMOGLOBIN. 9.7 g/dL (12.0-16.0); LYMPHOCYTES % 7.1 % (20.0-50.0); MEAN CORPUSCULAR HEMOGLOBIN 20.3 pg (28.0-32.0); MEAN CORPUSCULAR VOLUME 65.4 fL (81.0-99.0); MEAN PLATELET VOLUME 11.9 fl (7.4-10.4); MONOCYTES % 7.7 % (2.0-8.0); NEUTROPHILS % 84.7 % (40.0-76.0); PLATELET 239 x1000/uL (130-400); RED BLOOD CELL COUNT 4.78 mill/uL (4.2-5.4); RED CELL DISTRIBUTION WIDTH 22.1 % (11.6-14.6)
[2019-08-23 16:00] VITALS: BP 122/78
[2019-08-23] MEDS: BENZTROPINE MESYLATE 2MG TABLET PO SCH (17:00)
[2019-08-23 20:00] VITALS: BP 114/79
[2019-08-23] MEDS: CARVEDILOL 12.5MG TABLET PO SCH (21:00)
[2019-08-23] MEDS: ATORVASTATIN CALCIUM 40MG TABLET PO SCH (21:07)
[2019-08-23] MEDS: CEFTRIAXONE 1 G PREMIX 50 ML IV SCH (21:08)
[2019-08-23] MEDS: ARIPIPRAZOLE 5MG TABLET PO SCH (21:08)
[2019-08-23 22:09] LABS: PLATELET ESTIMATE NORMAL
[2019-08-24] VITALS: BP 122/78
[2019-08-24] MEDS: IPRATROPIUM/ALBUTEROL 0.5-3(2.5)MG/3ML NEB HHN SCH ×4 (03:30→21:52)
[2019-08-24 04:00] VITALS: BP 127/82
[2019-08-24] MEDS: ENOXAPARIN 120MG/0.8ML SYR SUBCUT SCH (04:51)
[2019-08-24] MEDS: METRONIDAZOLE 500 MG PREMIX 100 ML IV SCH ×3 (04:51→21:06)
[2019-08-24] MEDS: BENZONATATE 100MG CAPSULE PO SCH ×3 (05:23→21:09)
[2019-08-24] MEDS ORDERED: DIATR MEGLU/DIATRIZOATE SOLN 30ML PO SCH (06:00)
[2019-08-24] MEDS: GLIPIZIDE 5MG TABLET PO SCH (06:42)
[2019-08-24] MEDS: BLOOD SUGAR DIAGNOSTIC STRIP TEST SCH ×4 (06:42→20:28)
[2019-08-24 08:00] VITALS: BP 132/87
[2019-08-24] MEDS: CARVEDILOL 12.5MG TABLET PO SCH ×3 (09:00→21:00)
[2019-08-24] MEDS: LISINOPRIL 40MG TABLET PO SCH ×2 (09:00→09:23)
[2019-08-24] MEDS: AMIODARONE HCL 200 MG TABLET PO SCH ×2 (09:23→16:37)
[2019-08-24] MEDS ORDERED: IOHEXOL-300 100 ML BOTTLE ONE (09:23)
[2019-08-24] MEDS: METHYLPREDNISOLONE SOD SUCC 40 MG/ML VIAL IV SCH (09:26)
[2019-08-24] MEDS: FAMOTIDINE 20MG TABLET PO SCH ×2 (09:26→16:37)
[2019-08-24] MEDS: INSULIN LISPRO 100 UNITS/ML SUBCUT SCH ×4 (09:38→21:08)
[2019-08-24 12:00] VITALS: BP 124/75
[2019-08-24] MEDS: CEFTRIAXONE 1 G PREMIX 50 ML IV SCH (14:13)
[2019-08-24 16:00] VITALS: BP 127/88
[2019-08-24] MEDS: BENZTROPINE MESYLATE 2MG TABLET PO SCH ×2 (16:37→17:00)
[2019-08-24 20:00] VITALS: BP 130/90
[2019-08-24] MEDS: ARIPIPRAZOLE 5MG TABLET PO SCH (21:00)
[2019-08-24] MEDS: GABAPENTIN 300MG CAPSULE PO SCH (21:00)
[2019-08-24] MEDS: ENOXAPARIN 150MG/ML SYR SUBCUT SCH (21:06)
[2019-08-24] MEDS: ATORVASTATIN CALCIUM 40MG TABLET PO SCH (21:06)
[2019-08-25] VITALS: BP 126/82
[2019-08-25] MEDS: IPRATROPIUM/ALBUTEROL 0.5-3(2.5)MG/3ML NEB HHN SCH ×2 (03:45→09:39)
[2019-08-25 04:00] VITALS: BP 140/100
[2019-08-25] MEDS: BENZONATATE 100MG CAPSULE PO SCH ×2 (06:00→14:20)
[2019-08-25] MEDS: METRONIDAZOLE 500 MG PREMIX 100 ML IV SCH (06:07)
[2019-08-25] MEDS: BLOOD SUGAR DIAGNOSTIC STRIP TEST SCH ×2 (06:33→12:34)
[2019-08-25 08:00] VITALS: BP 153/98
[2019-08-25] MEDS: ENOXAPARIN 150MG/ML SYR SUBCUT SCH (08:53)
[2019-08-25] MEDS: METHYLPREDNISOLONE SOD SUCC 40 MG/ML VIAL IV SCH (08:54)
[2019-08-25] MEDS: AMIODARONE HCL 200 MG TABLET PO SCH (08:56)
[2019-08-25] MEDS: GLIPIZIDE 5MG TABLET PO SCH (08:57)
[2019-08-25] MEDS: FAMOTIDINE 20MG TABLET PO SCH (09:00)
[2019-08-25] MEDS: INSULIN LISPRO 100 UNITS/ML SUBCUT SCH ×2 (09:02→12:36)
[2019-08-25] MEDS: CARVEDILOL 12.5MG TABLET PO SCH (09:23)
[2019-08-25] MEDS: LISINOPRIL 40MG TABLET PO SCH (09:23)
[2019-08-25] MEDS ORDERED: ALBU18HF2 IH (11:52)
[2019-08-25] MEDS ORDERED: GABA-531 PO (11:52)
[2019-08-25] MEDS ORDERED: COR12 PO (11:52)
[2019-08-25] MEDS ORDERED: APIX5TAB MT (11:52)
[2019-08-25] MEDS ORDERED: MED4 MT (11:52)
[2019-08-25] MEDS ORDERED: AMI2 PO (11:52)
[2019-08-25] MEDS ORDERED: LISI40TA4 PO (11:52)
[2019-08-25 12:00] VITALS: BP 113/82
[2019-08-25 13:36] LABS: HEMATOCRIT. 33.3 % (36.0-48.0); HEMOGLOBIN. 10.6 g/dL (12.0-16.0); MEAN CORPUSCULAR HEMOGLOBIN 20.8 pg (28.0-32.0); MEAN CORPUSCULAR VOLUME 65.6 fL (81.0-99.0); MEAN PLATELET VOLUME 9.9 fl (7.4-10.4); PLATELET 238 x1000/uL (130-400); RED BLOOD CELL COUNT 5.08 mill/uL (4.2-5.4); RED CELL DISTRIBUTION WIDTH 22.4 % (11.6-14.6)
[2019-08-25 13:48] VITALS: BP 113/82
[2019-08-25 13:53] LABS: PLATELET ESTIMATE NORMAL
[2019-08-25] MEDS ORDERED: METRONIDAZOLE 500MG TABLET PO SCH (14:00)
[2019-08-25] MEDS: CEFTRIAXONE 1 G PREMIX 50 ML IV SCH (14:24)
[2019-08-28] MEDS ORDERED: APIXABAN 5 MG TABLET PO SCH (17:00)
== END 2019-08-25 15:30 | disposition home or self-care (01) | DRG 134 ==
LOC: ER 14:59 → 7WST 21:06 → 6WST 08-19 01:49
PROVIDERS: ADMIT Internal Medicine; ATTEND Internal Medicine
PROC: 02HV33Z Insertion of Infusion Device into Superior Vena Cava, Percutaneous Approach (ICD-10-PCS; principal; 2019-08-21)
PROC: B548ZZA Ultrasonography of Superior Vena Cava, Guidance (ICD-10-PCS; 2019-08-21)
PROC: B5181ZA Fluoroscopy of Superior Vena Cava using Low Osmolar Contrast, Guidance (ICD-10-PCS; 2019-08-21)
DX: I26.99 Other pulmonary embolism without acute cor pulmonale (principal); J96.00 Acute respiratory failure, unspecified whether with hypoxia or hypercapnia; I50.43 Acute on chronic combined systolic (congestive) and diastolic (congestive) heart failure; J18.9 Pneumonia, unspecified organism; K55.9 Vascular disorder of intestine, unspecified; I11.0 Hypertensive heart disease with heart failure; I27.20 Pulmonary hypertension, unspecified; E66.01 Morbid (severe) obesity due to excess calories; I69.351 Hemiplegia and hemiparesis following cerebral infarction affecting right dominant side; I42.9 Cardiomyopathy, unspecified; J44.0 Chronic obstructive pulmonary disease with (acute) lower respiratory infection; D50.9 Iron deficiency anemia, unspecified; E11.9 Type 2 diabetes mellitus without complications; I44.0 Atrioventricular block, first degree; I48.0 Paroxysmal atrial fibrillation; I48.20 Chronic atrial fibrillation, unspecified; J44.1 Chronic obstructive pulmonary disease with (acute) exacerbation; E78.5 Hyperlipidemia, unspecified; D72.821 Monocytosis (symptomatic); Z79.82 Long term (current) use of aspirin; Z79.84 Long term (current) use of oral hypoglycemic drugs; Z95.810 Presence of automatic (implantable) cardiac defibrillator; I69.322 Dysarthria following cerebral infarction; Z79.899 Other long term (current) drug therapy; Z87.891 Personal history of nicotine dependence; Z03.818 Encounter for observation for suspected exposure to other biological agents ruled out; Z71.3 Dietary counseling and surveillance; Z68.42 Body mass index [BMI] 45.0-49.9, adult
CPT/HCPCS: 36415; 36573; 36600; 71045; 71275; 74176; 74177; 76937; 80048; 80053; 80061; 80305; 81003; 82375; 82550; 82553; 82728; 82805; 82962; 83036; 83540; 83550; 83605; 83735; 83880; 84145; 84443; 84484; 85025; 85379; 85384; 93005; 93306; 94640; 96365; 99291; C1725; J0456; J0696; J1650; J1815; J1940; J2270; J2405; J2920; J3475; J3490; J7030; J7060; Q9963; Q9967; U0003-CS

== ENCOUNTER 2019-10-20 23:56 | Inpatient (IN) | payer MEDICAID ==
[~2019-10-20] VITALS: Ht 175.3 cm; Wt 102.1 kg
[~2019-10-20 23:56] MED LIST changes: +AMI2 PO; -AMLO10TA80 PO; +APIX5TAB MT; -ARIP30TA2 PO; -ASPI-1497 PO; -BENZ2TAB7 PO; -CARV25TA47 PO; +COR12 PO; -FURO-152 PO; -IBUP-2030 PO; +MED4 MT; -PRAV20TA57 PO
[2019-10-21] MEDS ORDERED: ONDANSETRON HCL 4MG/2ML INJ IV STA (05:02)
[2019-10-21] MEDS ORDERED: FAMOTIDINE 20MG/2ML VIAL IV STA (05:02)
[2019-10-21] MEDS ORDERED: SODIUM CHLORIDE 0.9% 1,000 ML IV ONE (05:02)
[2019-10-21] MEDS ORDERED: MORPHINE SULFATE 4 MG/ML CPJ (NOT FOR IM USE) IV STA (05:02)
[2019-10-21 05:24] LABS: HEMATOCRIT. 48.3 % (36.0-48.0); HEMOGLOBIN. 14.9 g/dL (12.0-16.0); MEAN CORPUSCULAR HEMOGLOBIN 22.4 pg (28.0-32.0); MEAN CORPUSCULAR VOLUME 72.8 fL (81.0-99.0); MEAN PLATELET VOLUME 9.4 fl (7.4-10.4); PLATELET 280 x1000/uL (130-400); RED BLOOD CELL COUNT 6.63 mill/uL (4.2-5.4); RED CELL DISTRIBUTION WIDTH 20.1 % (11.6-14.6)
[2019-10-21 05:31] LABS: CHLORIDE 104 mEq/L (98-107)
[2019-10-21 05:34] LABS: INR 1.2
[2019-10-21] MEDS ORDERED: DIATR MEGLU/DIATRIZOATE SOLN 30ML ONE (05:49)
[2019-10-21] MEDS ORDERED: IOHEXOL-300 100 ML BOTTLE ONE ×2 (05:49→14:16)
[2019-10-21 07:36] LABS: PLATELET ESTIMATE NORMAL
[2019-10-21] MEDS ORDERED: ONDANSETRON HCL 4MG/2ML INJ IV ONE (08:30)
[2019-10-21] MEDS ORDERED: PIPERACILLIN/TAZ 3.375G PREMIX 50 ML IV ONE (08:30)
[2019-10-21] MEDS ORDERED: VANCOMYCIN 1 G PREMIX 200 ML IV ONE (08:30)
[2019-10-21] MEDS ORDERED: SODIUM CHLORIDE 0.9% 1,000 ML IV SCH (15:05)
[2019-10-21] MEDS ORDERED: IPRATROPIUM/ALBUTEROL 0.5-3(2.5)MG/3ML NEB HHN PRN (15:15)
[2019-10-21] MEDS: MORPHINE SULFATE 2 MG/ML CPJ (NOT FOR IM USE) IV PRN ×2 (15:50→23:06)
[2019-10-21] MEDS: ONDANSETRON HCL 4MG/2ML INJ IV PRN ×2 (15:51→23:04)
[2019-10-21] MEDS: APIXABAN 5 MG TABLET PO SCH (17:51)
[2019-10-21] MEDS: AMIODARONE HCL 200 MG TABLET PO SCH (17:51)
[2019-10-21 18:05] LABS: CLARITY URINE CLEAR (CLEAR); COLOR URINE DARK YELLOW (YELLOW); KETONES URINE TRACE (NEGATIVE); LEUKOCYTE ESTERASE URINE NEGATIVE (NEGATIVE); NITRITE URINE NEGATIVE (NEGATIVE); OCCULT BLOOD URINE NEGATIVE (NEGATIVE); PROTEIN URINE 1+ (NEGATIVE); SPECIFIC GRAVITY URINE 1.079 (1.005-1.030)
[2019-10-21 18:25] LABS: *AMPHETAMINES SCREEN URINE NEGATIVE (NEGATIVE); *BARBITURATES SCREEN URINE NEGATIVE (NEGATIVE); *BENZODIAZEPINES SCREEN URINE NEGATIVE (NEGATIVE); *COCAINE SCREEN URINE NEGATIVE (NEGATIVE); METHADONE URINE SCREEN NEGATIVE (NEGATIVE); OPIATES URINE SCREEN PRESUMTIVE POSITIVE (NEGATIVE)
[2019-10-21 18:26] LABS: CANNABINOID URINE SCREEN NEGATIVE (NEGATIVE); PHENCYCLIDINE URINE SCREEN NEGATIVE (NEGATIVE)
[2019-10-21] MEDS ORDERED: CARVEDILOL 12.5MG TABLET PO SCH (21:00)
[2019-10-21 22:30] VITALS: BP 114/68
[2019-10-21] MEDS: ATORVASTATIN CALCIUM 40MG TABLET PO SCH (23:03)
[2019-10-21] MEDS ORDERED: DEXTROSE 50% WATER 50ML SYRINGE IV PRN (23:30)
[2019-10-22] VITALS: BP 114/68
[2019-10-22 04:00] VITALS: BP 101/57
[2019-10-22] MEDS: MORPHINE SULFATE 2 MG/ML CPJ (NOT FOR IM USE) IV PRN (04:33)
[2019-10-22] MEDS: DEXT 5%/0.9% NACL KCL 20MEQ/L 1,000 ML IV SCH (04:53)
[2019-10-22] MEDS: ONDANSETRON HCL 4MG/2ML INJ IV PRN (05:04)
[2019-10-22 06:55] LABS: PHOSPHORUS 3.8 mg/dL (2.5-4.9)
[2019-10-22 06:59] LABS: HEMATOCRIT. 39.6 % (36.0-48.0); HEMOGLOBIN. 12.5 g/dL (12.0-16.0); MEAN CORPUSCULAR HEMOGLOBIN 22.6 pg (28.0-32.0); MEAN CORPUSCULAR VOLUME 71.5 fL (81.0-99.0); MEAN PLATELET VOLUME 9.7 fl (7.4-10.4); PLATELET 174 x1000/uL (130-400); RED BLOOD CELL COUNT 5.54 mill/uL (4.2-5.4); RED CELL DISTRIBUTION WIDTH 19.6 % (11.6-14.6)
[2019-10-22] MEDS: BLOOD SUGAR DIAGNOSTIC STRIP TEST SCH ×4 (07:20→21:00)
[2019-10-22] MEDS: INSULIN LISPRO 100 UNITS/ML SUBCUT SCH ×4 (07:50→21:00)
[2019-10-22 08:00] VITALS: BP 95/58
[2019-10-22] MEDS ORDERED: SODIUM CHLORIDE 0.9% 500 ML IV SCH (09:00)
[2019-10-22] MEDS: CARVEDILOL 12.5MG TABLET PO SCH ×2 (09:02→21:00)
[2019-10-22] MEDS: AMIODARONE HCL 200 MG TABLET PO SCH ×2 (09:02→18:05)
[2019-10-22] MEDS: APIXABAN 5 MG TABLET PO SCH ×2 (09:02→18:05)
[2019-10-22] MEDS ORDERED: MAGNESIUM 2 G PREMIX 50 ML IV SCH (11:00)
[2019-10-22 12:00] VITALS: BP 92/51
[2019-10-22 14:02] LABS: PLATELET ESTIMATE NORMAL
[2019-10-22 16:00] VITALS: BP 87/59
[2019-10-22] MEDS ORDERED: SODIUM CHLORIDE 0.9% 500 ML IV ONE (19:45)
[2019-10-22 20:00] VITALS: BP 107/61
[2019-10-22] MEDS: ATORVASTATIN CALCIUM 40MG TABLET PO SCH (22:05)
[2019-10-23] VITALS: BP 115/65
[2019-10-23] MEDS: DEXT 5%/0.9% NACL KCL 20MEQ/L 1,000 ML IV SCH ×2 (00:16→06:18)
[2019-10-23 04:00] VITALS: BP 105/61
[2019-10-23] MEDS: BLOOD SUGAR DIAGNOSTIC STRIP TEST SCH ×4 (06:18→21:00)
[2019-10-23 06:22] LABS: HEMATOCRIT. 36.7 % (36.0-48.0); HEMOGLOBIN. 11.5 g/dL (12.0-16.0); MEAN CORPUSCULAR HEMOGLOBIN 22.4 pg (28.0-32.0); MEAN CORPUSCULAR VOLUME 71.7 fL (81.0-99.0); MEAN PLATELET VOLUME 10.8 fl (7.4-10.4); PLATELET 165 x1000/uL (130-400); RED BLOOD CELL COUNT 5.11 mill/uL (4.2-5.4); RED CELL DISTRIBUTION WIDTH 19.7 % (11.6-14.6)
[2019-10-23 06:54] LABS: PHOSPHORUS 2.8 mg/dL (2.5-4.9)
[2019-10-23] MEDS: INSULIN LISPRO 100 UNITS/ML SUBCUT SCH ×4 (07:50→21:00)
[2019-10-23 08:00] VITALS: BP 108/58
[2019-10-23] MEDS: CARVEDILOL 6.25 MG TABLET PO SCH ×2 (09:00→21:00)
[2019-10-23] MEDS ORDERED: DEXT 5%/0.9% NACL KCL 30MEQ/L 1,000 ML IV SCH (09:30)
[2019-10-23] MEDS: APIXABAN 5 MG TABLET PO SCH ×2 (09:49→16:49)
[2019-10-23] MEDS: AMIODARONE HCL 200 MG TABLET PO SCH ×2 (09:49→16:49)
[2019-10-23] MEDS: POTASSIUM CHLORIDE INJ 30 MEQ in DEXT 5%/0.9% NACL 1,000 ML IV SCH ×2 (10:02→18:35)
[2019-10-23 11:39] LABS: PLATELET ESTIMATE NORMAL
[2019-10-23 12:00] VITALS: BP 106/56
[2019-10-23] MEDS ORDERED: DIATR MEGLU/DIATRIZOATE SOLN 30ML PO NR (13:15)
[2019-10-23 16:00] VITALS: BP 111/54
[2019-10-23 20:00] VITALS: BP 96/60
[2019-10-23] MEDS: ATORVASTATIN CALCIUM 40MG TABLET PO SCH (21:56)
[2019-10-23] MEDS: IPRATROPIUM/ALBUTEROL 0.5-3(2.5)MG/3ML NEB HHN SCH (23:50)
[2019-10-24] VITALS: BP 112/63
[2019-10-24] MEDS: ONDANSETRON HCL 4MG/2ML INJ IV PRN (00:33)
[2019-10-24] MEDS: POTASSIUM CHLORIDE INJ 30 MEQ in DEXT 5%/0.9% NACL 1,000 ML IV SCH ×3 (02:32→21:26)
[2019-10-24 04:00] VITALS: BP 109/84
[2019-10-24] MEDS: IPRATROPIUM/ALBUTEROL 0.5-3(2.5)MG/3ML NEB HHN SCH ×5 (04:13→16:11)
[2019-10-24 06:50] LABS: BASOPHILS % 0.7 % (0.0-2.0); EOSINOPHILS % 0.4 % (0.0-5.0); HEMATOCRIT. 36.7 % (36.0-48.0); HEMOGLOBIN. 11.4 g/dL (12.0-16.0); LYMPHOCYTES % 14.7 % (20.0-50.0); MEAN CORPUSCULAR HEMOGLOBIN 22.3 pg (28.0-32.0); MEAN CORPUSCULAR VOLUME 71.5 fL (81.0-99.0); MEAN PLATELET VOLUME 9.8 fl (7.4-10.4); MONOCYTES % 8.9 % (2.0-8.0); NEUTROPHILS % 75.3 % (40.0-76.0); PLATELET 189 x1000/uL (130-400); RED BLOOD CELL COUNT 5.12 mill/uL (4.2-5.4); RED CELL DISTRIBUTION WIDTH 18.8 % (11.6-14.6)
[2019-10-24] MEDS: BLOOD SUGAR DIAGNOSTIC STRIP TEST SCH ×4 (06:57→21:39)
[2019-10-24 07:04] LABS: CHLORIDE 109 mEq/L (98-107)
[2019-10-24 07:17] LABS: PHOSPHORUS 1.9 mg/dL (2.5-4.9)
[2019-10-24 08:00] VITALS: BP 119/73
[2019-10-24] MEDS: APIXABAN 5 MG TABLET PO SCH (08:46)
[2019-10-24] MEDS: AMIODARONE HCL 200 MG TABLET PO SCH ×2 (08:46→17:12)
[2019-10-24] MEDS: CARVEDILOL 6.25 MG TABLET PO SCH ×2 (08:48→21:25)
[2019-10-24] MEDS: INSULIN LISPRO 100 UNITS/ML SUBCUT SCH ×4 (09:07→21:00)
[2019-10-24] MEDS ORDERED: SODIUM PHOS,M-BASIC-D-BASIC 30 MM in DEXT 5% WATER 500 ML IV SCH (10:30)
[2019-10-24] MEDS ORDERED: DIATR MEGLU/DIATRIZOATE SOLN 120ML ONE (14:42)
[2019-10-24 20:00] VITALS: BP 121/78
[2019-10-24] MEDS: ATORVASTATIN CALCIUM 40MG TABLET PO SCH (21:23)
[2019-10-25] VITALS: BP 101/60
[2019-10-25 04:00] VITALS: BP 106/60
[2019-10-25 05:46] LABS: HEMATOCRIT. 37.3 % (36.0-48.0); HEMOGLOBIN. 11.8 g/dL (12.0-16.0); MEAN CORPUSCULAR HEMOGLOBIN 22.6 pg (28.0-32.0); MEAN CORPUSCULAR VOLUME 71.6 fL (81.0-99.0); MEAN PLATELET VOLUME 9.6 fl (7.4-10.4); PLATELET 200 x1000/uL (130-400); RED BLOOD CELL COUNT 5.21 mill/uL (4.2-5.4); RED CELL DISTRIBUTION WIDTH 19.1 % (11.6-14.6)
[2019-10-25 05:53] LABS: CHLORIDE 115 mEq/L (98-107)
[2019-10-25 06:03] LABS: PHOSPHORUS 3.1 mg/dL (2.5-4.9)
[2019-10-25] MEDS: BLOOD SUGAR DIAGNOSTIC STRIP TEST SCH ×4 (07:02→21:30)
[2019-10-25] MEDS: INSULIN LISPRO 100 UNITS/ML SUBCUT SCH ×4 (07:03→21:00)
[2019-10-25] MEDS: POTASSIUM CHLORIDE INJ 30 MEQ in DEXT 5%/0.9% NACL 1,000 ML IV SCH (07:16)
[2019-10-25 08:00] VITALS: BP 117/69
[2019-10-25] MEDS: IPRATROPIUM/ALBUTEROL 0.5-3(2.5)MG/3ML NEB HHN SCH ×4 (09:21→21:24)
[2019-10-25] MEDS: CARVEDILOL 6.25 MG TABLET PO SCH ×2 (09:55→21:30)
[2019-10-25] MEDS: AMIODARONE HCL 200 MG TABLET PO SCH ×2 (09:55→18:24)
[2019-10-25 12:00] VITALS: BP 116/65
[2019-10-25] MEDS: ENOXAPARIN 100MG/ML SYR SUBCUT SCH (13:08)
[2019-10-25] MEDS ORDERED: LIDOCAINE HCL 1% 20ML VIAL (Pyxis) INJ ONE (13:54)
[2019-10-25] MEDS ORDERED: SODIUM BICARBONATE 4% (2.4MEQ) 5ML VIAL IV ONE (13:54)
[2019-10-25 14:26] LABS: PLATELET ESTIMATE NORMAL
[2019-10-25] MEDS: DEXT 5%/0.45% NACL KCL 20MEQ/L 1,000 ML IV SCH (14:30)
[2019-10-25 16:00] VITALS: BP 115/64
[2019-10-25 20:00] VITALS: BP 118/72
[2019-10-25] MEDS: ATORVASTATIN CALCIUM 40MG TABLET PO SCH (21:30)
[2019-10-26] VITALS: BP 108/65
[2019-10-26] MEDS: IPRATROPIUM/ALBUTEROL 0.5-3(2.5)MG/3ML NEB HHN SCH ×3 (00:28→09:36)
[2019-10-26 04:00] VITALS: BP 117/62
[2019-10-26] MEDS: BLOOD SUGAR DIAGNOSTIC STRIP TEST SCH ×2 (05:54→12:13)
[2019-10-26] MEDS: INSULIN LISPRO 100 UNITS/ML SUBCUT SCH ×2 (05:54→12:13)
[2019-10-26] MEDS: ENOXAPARIN 100MG/ML SYR SUBCUT SCH ×2 (06:00→06:07)
[2019-10-26 06:21] LABS: CHLORIDE 110 mEq/L (98-107)
[2019-10-26 06:31] LABS: MEAN CORPUSCULAR HEMOGLOBIN 22.3 pg (28.0-32.0); MEAN CORPUSCULAR VOLUME 71.1 fL (81.0-99.0); MEAN PLATELET VOLUME 10.3 fl (7.4-10.4); PHOSPHORUS 2.7 mg/dL (2.5-4.9); PLATELET 177 x1000/uL (130-400); RED BLOOD CELL COUNT 4.92 mill/uL (4.2-5.4)
[2019-10-26 08:00] VITALS: BP 110/58
[2019-10-26] MEDS: CARVEDILOL 6.25 MG TABLET PO SCH (09:07)
[2019-10-26] MEDS: AMIODARONE HCL 200 MG TABLET PO SCH (09:07)
[2019-10-26] MEDS: DEXT 5%/0.45% NACL KCL 20MEQ/L 1,000 ML IV SCH (09:09)
[2019-10-26] MEDS ORDERED: COR6 PO (11:32)
[2019-10-26] MEDS ORDERED: APIX5TAB PO (11:32)
[2019-10-26 12:51] LABS: PLATELET ESTIMATE NORMAL
[2019-10-26 13:19] VITALS: BP 109/67
== END 2019-10-26 15:30 | disposition home or self-care (01) | DRG 247 ==
LOC: ER 23:56 → EDBEDREQSVC 10-21 18:52 → ENRESERV 10-21 20:21 → 6EST 10-21 22:28
PROVIDERS: ADMIT Internal Medicine; ATTEND Internal Medicine
PROC: 02HV33Z Insertion of Infusion Device into Superior Vena Cava, Percutaneous Approach (ICD-10-PCS; principal; 2019-10-25)
PROC: B5181ZA Fluoroscopy of Superior Vena Cava using Low Osmolar Contrast, Guidance (ICD-10-PCS; 2019-10-25)
PROC: B548ZZA Ultrasonography of Superior Vena Cava, Guidance (ICD-10-PCS; 2019-10-25)
DX: K56.690 Other partial intestinal obstruction (principal); K55.019 Acute (reversible) ischemia of small intestine, extent unspecified; E66.01 Morbid (severe) obesity due to excess calories; D56.9 Thalassemia, unspecified; D72.810 Lymphocytopenia; D72.825 Bandemia; E11.22 Type 2 diabetes mellitus with diabetic chronic kidney disease; E87.2 Acidosis; E87.6 Hypokalemia; I13.0 Hypertensive heart and chronic kidney disease with heart failure and stage 1 through stage 4 chronic kidney disease, or unspecified chronic kidney disease; I48.20 Chronic atrial fibrillation, unspecified; I50.42 Chronic combined systolic (congestive) and diastolic (congestive) heart failure; J44.9 Chronic obstructive pulmonary disease, unspecified; K21.9 Gastro-esophageal reflux disease without esophagitis; K29.70 Gastritis, unspecified, without bleeding; N17.9 Acute kidney failure, unspecified; N18.9 Chronic kidney disease, unspecified; D50.9 Iron deficiency anemia, unspecified; E83.39 Other disorders of phosphorus metabolism; E83.42 Hypomagnesemia; I26.93 Single subsegmental thrombotic pulmonary embolism without acute cor pulmonale; I27.20 Pulmonary hypertension, unspecified; K55.9 Vascular disorder of intestine, unspecified; K56.51 Intestinal adhesions [bands], with partial obstruction; N14.1 Nephropathy induced by other drugs, medicaments and biological substances; N83.201 Unspecified ovarian cyst, right side; G89.29 Other chronic pain; M54.5 Low back pain; Z82.49 Family history of ischemic heart disease and other diseases of the circulatory system; I69.322 Dysarthria following cerebral infarction; Z79.01 Long term (current) use of anticoagulants; Z68.33 Body mass index [BMI] 33.0-33.9, adult; Z83.3 Family history of diabetes mellitus; I69.351 Hemiplegia and hemiparesis following cerebral infarction affecting right dominant side; Z86.711 Personal history of pulmonary embolism; Z95.810 Presence of automatic (implantable) cardiac defibrillator
CPT/HCPCS: 36415; 36573; 71045; 74018; 74176; 74177; 74249; 76937; 80048; 80053; 80076; 80305; 81003; 82962; 83036; 83605; 83735; 84100; 84145; 84484; 85025; 93005; 94640; 99285; C1725; J1650; J1815; J2270; J2405; J2543; J3370; J3475; J3480; J3490; J7030; J7042; J7060; Q9963; Q9967